=== PATIENT | male | born 1960 | race Caucasian/White ===

== ENCOUNTER 2017-12-07 10:34 | Emergency (ER) | payer BC ==
[~2017-12-07] VITALS: Ht 195.6 cm; Wt 143.8 kg
--- NOTE | ~2017-12-07 | EKG ---
[place] [address] [address] [facility] [employer] 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
[~2017-12-07 10:34] MED LIST: ACETAMINOPHEN325 MG PO; ASPIR 8181 MG PO; ASPIRIN EC81 M1 PO; ATORVASTATIN CA20 MG PO; BACTROBAN22 GM NASAL; CALCIUM 500 MG1 EACH PO; CENTRUM SILVER1 EAC4 PO; COREG6.25 MG PO; FERREX 150 FORT1 CAP PO; LASIX 40 MG TAB40 M1 PO; LISINOPRIL-HCT1 EACH PO; MILK OF MA2400 MG/10 PO; NITROSTAT0.3 MG SL; NITROSTAT0.3 MG SUBLING; NORCO 5-325 TA1 EACH PO; OXYCODONE-APAP1 EAC4 PO; PHILLIPS'400 MG/5 M PO; POTASSIUM CHLO10 MEQ PO; ZANTAC 150MG T150 M1 PO; ZESTRIL5 MG PO
[2017-12-07] MEDS ORDERED: CELEXA20 MG PO (10:44)
[2017-12-07 11:11] LABS: ABSOLUTE NEUTROPHILS 5.2 thou/uL (1.4-8.2); BASOPHILS 0.8 % (0.0-2.0); EOSINOPHILS 5.4 % (0.0-3.0); HEMOGLOBIN 15.8 gm/dL (14.0-18.0); LYMPHOCYTES 15.3 % (24.0-44.0); MCH 30.8 pg (26.0-34.0); MCHC 34.3 g/dL (28.0-37.0); MCV 89.7 fL (80.0-100.0); PLATELET COUNT 217 thou/uL (150-400); POLYS 72.5 % (36.0-66.0); RBC 5.12 mil/uL (4.50-6.00); RDW 13.1 % (10.5-14.5); WBC 7.1 thou/uL (4.0-11.0)
[2017-12-07 11:16] LABS: ANION GAP 6 mmol/L (7-16); BUN 15 mg/dL (7-18); CALCIUM 9.6 mg/dL (8.5-10.1); CHLORIDE 103 mmol/L (98-107); CO2 27 mmol/L (21-32); CREATININE 0.8 mg/dL (0.7-1.3); GLUCOSE 139 mg/dL (74-106); POTASSIUM 4.5 mmol/L (3.5-5.1); SODIUM 136 mmol/L (136-145)
[2017-12-07 11:25] LABS: TROPONIN-I < 0.04 ng/mL (<0.06)
[2017-12-07 13:30] VITALS: BP 133/78
== END 2017-12-07 13:32 | disposition home or self-care (01) ==
LOC: ER 10:34
PROVIDERS: Emergency Medicine
DX: R07.9 Chest pain, unspecified (principal); I10 Essential (primary) hypertension; E78.5 Hyperlipidemia, unspecified; E66.9 Obesity, unspecified; Z86.14 Personal history of Methicillin resistant Staphylococcus aureus infection; Z88.8 Allergy status to other drugs, medicaments and biological substances; Z91.040 Latex allergy status; Z87.891 Personal history of nicotine dependence; Z68.37 Body mass index [BMI] 37.0-37.9, adult